=== PATIENT | female | born 2000 | race Caucasian/White ===

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

== ENCOUNTER 2022-11-25 11:33 | Emergency (ER) | payer OTHER ==
[~2022-11-25] VITALS: Ht 175.3 cm; Wt 104.3 kg
[2022-11-25] MEDS ORDERED: BEYAZ 28 TABLE1 EACH (11:50)
[2022-11-25] MEDS ORDERED: RELAFEN DS1000 MG PO (13:52)
[2022-11-25] MEDS ORDERED: CYCLOBENZAPRINE10 MG PO (13:52)
== END 2022-11-25 14:27 | disposition home or self-care (01) ==
LOC: ER 11:33
DX: M79.602 Pain in left arm (principal)

== ENCOUNTER 2023-01-30 09:00 | Emergency (ER) | payer OTHER ==
[~2023-01-30] VITALS: Ht 175.3 cm; Wt 99.8 kg
[~2023-01-30 09:00] MED LIST: BEYAZ 28 TABLE1 EACH; CYCLOBENZAPRINE10 MG PO; RELAFEN DS1000 MG PO
[2023-01-30] MEDS ORDERED: DICLOFENAC SODI75 MG PO (09:45)
== END 2023-01-30 10:23 | disposition home or self-care (01) ==
LOC: ER 09:00
DX: M77.8 Other enthesopathies, not elsewhere classified (principal)